=== PATIENT | female | born 1970 | race Caucasian/White ===

== ENCOUNTER → 2016-07-08 | Outpatient (CLI) | payer BC ==
[~2016-07-08] MED LIST: MULT-506 PO; WLLUNK; [UNRECOGNIZED DRUG - OTHER]
--- NOTE | 2016-07-11 13:45 | MAMMOGRAPHY REPORT ---
BILATERAL DIGITAL SCREENING MAMMOGRAM TOMOSYNTHESIS WITH CAD: 07/08/2016 CLINICAL HISTORY: Routine screening. Patient has no complaints. TECHNIQUE: Breast tomosynthesis in addition to standard 2D mammography was performed. Current study was also evaluated with a Computer Aided Detection (CAD) system. COMPARISON: Comparison is made to exams dated: 06/17/2015 mammogram, 05/30/2013 mammogram, 06/16/2014 m ammogram, 02/27/2012 mammogram, and 02/14/2011 mammogram - [facility]. BREAST COMPOSITION: The tissue of both breasts is heterogeneously dense, which may obscure small ma sses. FINDINGS: No suspicious masses, calcifications, or areas of architectural distortion are noted in e ither breast. There has been no significant interval change compared to prior exams. IMPRESSION: ACR BI-RADS CATEGORY 1: NEGATIVE There is no mammographic evidence of malignancy. A 1 year screening mammogram is recommended. The p atient will receive written notification of the results. Approximately 10% of breast cancers are not detected with mammography. A negative mammographic repor t should not delay biopsy if a clinically suggestive mass is present. Aydee Blank M.D. ah/:07/08/2016 16:31:50 Packaging Designer: Daniela HUANG(R)(M), [facility] letter sent: Normal 1/2 BI-RADS Code: ACR BI-RADS Category 1: Negative
== END | disposition home or self-care (01) ==
LOC: C.MAMM 15:52
PROVIDERS: ATTEND Family Medicine
DX: Z12.31 Encounter for screening mammogram for malignant neoplasm of breast (principal)

== ENCOUNTER → 2016-10-28 | Outpatient (CLI) | payer BC ==
--- NOTE | 2016-10-28 14:46 | DIAGNOSTIC IMAGING REPORT ---
EXAMINATION: PELVIC ULTRASOUND (transabdominal and endovaginal scanning) CLINICAL HISTORY: N93.9 ABNORMAL VAGINAL BLEEDING COMPARISON STUDY: None FINDINGS: The uterus measured 9.3 x 5.6 x 5.2 cm.. The endometrial stripe measured 15 mm.. The right ovary measured 34 x 29 x 22 mm. There is a 2 mm hypoechoic focus likely representing a complex functional cyst. The left ovary measured 29 x 24 x 16 mm.. There is no ultrasonographic evidence of ovarian torsion. It should be noted that ovarian torsion can be present with normal Doppler ultrasonographic findings. There is a small amount of free fluid likely physiologic. IMPRESSION: 1. 15 mm endometrial stripe. Please correlate with patient's menstrual phase 2. No pathologic ovarian masses. 3. Small amount of free fluid in the cul-de-sac likely physiologic Electronically signed by: Bartolome Lezama M.D. 10/28/2016 2:44 PM Dictated Date/Time: 10/28/2016 2:42 PM
== END | disposition home or self-care (01) ==
LOC: C.ULTR 13:49
PROVIDERS: ATTEND Obstetrics & Gynecology
DX: N93.9 Abnormal uterine and vaginal bleeding, unspecified (principal)